=== PATIENT | female | born 1940 | race Caucasian/White ===

== ENCOUNTER 2017-06-22 02:56 | Emergency (ER) | payer OTHER ==
[~2017-06-22] VITALS: Ht 160 cm; Wt 58.5 kg
--- NOTE | ~2017-06-22 | EKG ---
[place] [address] [facility] [place] [address] ELECTROCARDIOGRAM REPORT Name: SUSU ZHANG [id number] Admission: 06/22/17 Attend Phys: Discharge: 06/22/17 Date of : 36 Report #: [id number] THIS REPORT FOR: //name// [facility] ED Test Date: 2017-06-22 Test Time: 03:01:51 Pat Name: SUSU ZHANG Department: Room: Gender: F Bone Puller: KAYLA : 1940 Requested By: Ketan Patterson Order Number: [id number] MD: Carlos Her Measurements Intervals [place] Rate: 86 P: 75 CO: 111 QRS: 69 QRSD: 91 T: 47 QT: 351 QTc: 420 Interpretive Statements Sinus rhythm Borderline short CO interval Compared to ECG 04/04/2013 18:25:33 No significant changes Electronically Signed On 06-22-2017 8:12:25 COUNTY TREASURER by Carlos Her [email or web address] <ELECTRONICALLY SIGNED> By: Carlos Her MD, [facility] 06/22/17 0812 030 030 Carlos Her MD, FACC /EPI
[~2017-06-22 02:56] MED LIST: ADULT LOW DOSE81 MG PO; ALTACE; BYSTOLIC 5 MG5 M1 PO; CALICUM 500+D1 EACH PO; CARAFATE 1 GM TA1 G1 OR; CARDIOTEK TABL1 EACH PO; CARDIZEM CD120 MG PO; CELEXA; CHONDROITIN SU250 MG PO; CITRACAL-VIT D1 EACH PO; CLONAZEPAM; CLONAZEPAM 1 MG1 M1 PO; CLONAZEPAM PO; CO Q-1010 MG PO; CRESTOR10 MG PO; CRESTOR5 MG PO; DYAZIDE; EFFIENT10 MG PO; FELDENE20 MG PO; FEMARA2.5 MG PO; FENTANYL PA25 MCG/HR TP; FISH OIL 1,0001 EAC5 PO; FISHOIL; GLUCOSAMINE HC500 MG PO; HYDROCODONE; HYDROCODONE-AP1 EACH PO; IRON325 OR; KEFLEX500 MG PO; LEVOXYL100 MCG PO; LIORESAL 10 MG10 MG PO; NABUMETONE 500500 M1 PO; NITROGLYCERIN0.4 MG SL; OMEPRAZOLE20 M2 PO; PAXIL20 MG PO; PROTONIX40 M2 PO; PROZAC40 MG PO; RAMIPRIL PO; SUPER B COMPLE1 EAC2 PO; THYROID; ZOCOR40 MG PO; [UNRECOGNIZED DRUG - OTHER] PO
[2017-06-22 03:30] LABS: HEMATOCRIT 42.3 % (37.0-47.0); HEMOGLOBIN 14.5 gm/dL (12.0-15.0); MCH 32.1 pg (26.0-34.0); MCHC 34.4 g/dL (28.0-37.0); MCV 93.5 fL (80.0-100.0); RBC 4.52 mil/uL (4.20-5.00); RDW 12.3 % (10.5-14.5); WBC 6.3 thou/uL (4.0-11.0)
[2017-06-22 03:41] LABS: ANION GAP 11 mmol/L (7-16); BUN 21 mg/dL (7-18); CALCIUM 9.7 mg/dL (8.5-10.1); CHLORIDE 105 mmol/L (98-107); CO2 27 mmol/L (21-32); CREATININE 0.8 mg/dL (0.6-1.0); GLUCOSE 110 mg/dL (74-106); POTASSIUM 3.8 mmol/L (3.5-5.1); SODIUM 143 mmol/L (136-145)
[2017-06-22 03:50] LABS: ALBUMIN 4.3 g/dL (3.4-5.0); SGOT 26 U/L (15-37); SGPT 26 U/L (30-65); TOTAL BILIRUBIN 0.4 mg/dL (<0.1-1.0); TROPONIN-I < 0.04 ng/mL (<0.06)
[2017-06-22 04:11] VITALS: BP 131/77
== END 2017-06-22 04:13 | disposition home or self-care (01) ==
LOC: ER 02:56
PROVIDERS: Emergency Medicine
DX: R00.2 Palpitations (principal); Z90.13 Acquired absence of bilateral breasts and nipples

== ENCOUNTER 2017-11-04 08:01 | Outpatient (CLI) | payer OTHER ==
[~2017-11-04] VITALS: Ht 160 cm; Wt 63.7 kg
--- NOTE | ~2017-11-04 | EKG ---
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
--- NOTE | ~2017-11-04 | EKG ---
[address] [address] ELECTROCARDIOGRAM REPORT Name: SUSU ZHANG Room #: 214-P [facility]#: [id number] Admission: 11/04/17 Attend Phys: All De La O MD Discharge: Date of : 38 Report #: [id number] THIS REPORT FOR: //name// [facility] Test Date: 2017-11-04 Test Time: 10:59:28 Pat Name: SUSU ZHANG Department: Room: Gender: F Punch Finisher: Eileen BARRERA : 1940 Requested By: All De La O Order Number: [id number] MD: Cj Delgado Measurements Intervals [place] Rate: 70 P: 55 FL: 133 QRS: 68 QRSD: 94 T: 53 QT: 398 QTc: 430 Interpretive Statements Sinus rhythm Compared to ECG 06/22/2017 03:01:51 No significant changes Electronically Signed On 11-04-2017 13:08:51 CDT by Cj Delgado [email or web address] <ELECTRONICALLY SIGNED> By: Cj Delgado MD 11/04/17 1308 1059 1059 Cj Delgado MD /CHAGO
--- NOTE | ~2017-11-04 | D ---
[facility] [place] [address] DISCHARGE SUMMARY Name: SUSU ZHANG Room #: DEP Rahel Isaacs#: [id number] Admission: 11/04/17 Attend Phys: All De La O MD Discharge: 11/05/17 Date of : 38 Report #: [id number] THIS REPORT FOR: //name// CC: Mann De La O DATE OF SERVICE: 11/05/2017 FINAL DIAGNOSES: 1. Unstable angina, status post coronary angioplasty. 2. Remote history of coronary artery disease with prior stent placement. 3. Hypertension. 4. Hypercholesterolemia. 5. Arthritis. HOSPITAL COURSE: Please see the original H and P for full details. The patient presented with her anginal equivalent, dyspnea on exertion. She underwent a nuclear stress test, revealing anterior ischemia. Please see the cardiac catheterization report for full details. The previously placed stents in the mid LAD was patent with moderate restenosis. This was also evident in the RCA stent as well. She had a new severe stenosis in the proximal LAD, undergoing placement of a drug-eluting stent. She has remained stable overnight. There is no history of chest pains or shortness of breath overnight. I discussed with her the importance of compliance with the combination of aspirin and Plavix. She will continue with other medications. The only replacement is Lipitor instead of Zocor. Otherwise, she will follow up in a few weeks' time. <ELECTRONICALLY SIGNED> By: All De La O MD 11/08/17 0806 0840 0856 All De La O MD /jeff
--- NOTE | ~2017-11-04 | CATHLAB ---
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, Farrah Chong Sandifer, David Monitor, Elgin Montgomery facilities director Performed Art Access - R femoral artery* Left Heart Cath w/or w/o Coronaries [id number] [facility] [address] Initial Mod Sed Same Phys/QHP Gr5y [id number] 21761 Mod Sed Same Phys/QHP Ea [id number] [facility] [address] w/wo Plasty Single LAD 736003 Hemostasis w/ Mynx Indication Dyspnea, Positive stress test Risk Factors Hypercholesterolemia, Coronary Artery DiseaseHypertension Previous Procedures/Diagnoses Previous PCI Procedure Narrative The patient was brought electively to the Cardiac Catheterization Laboratory and was prepped and draped in a sterile manner. The Right Groin^ was infiltrated with 1% Lidocaine subcutaneous anesthesia. A PINNACLE 4FR Sheath #[id number] sheath was inserted into the RFA^. Coronary angiography was performed using coronary diagnostic catheters. The right coronary system was accessed and visualized with a JR 4 catheter. The left coronary system was accessed and visualized with a JL 4 catheter. The left ventricle was accessed and visualized with a Pigtail catheter. Left ventricular/Aortic Valve gradient assessed via catheter pullback. Left ventriculogram was performed in PEOPLES projection. Pre-demployment femoral angiogram was performed . Closure device was deployed with a 6 Fr Mynx. The patient tolerated the procedure well and there were no complications associated with the procedure. There was no hematoma. [facility] [address] [place] [address] INVASIVE PROCEDURE REPORT Name: SUSU ZHANG Room #: 214-P [facility]#: [id number] Admission: 11/04/17 Attend Phys: All De La O MD Discharge: Date of : 38 Date of Service: 11/04/17 1435 Report #: [id number] Intraoperative Conscious Sedation Sedation start time: 09:40 Case end Time: 10:26 Fentanyl 100 mcg Versed 2 mg Fluoro Time: 6.11 minutes Dose: DAP 9736.00 cGycm2 1261 mGy Contrast Type and Amount: Omnipaque 230 ml Coronary Angiography The patient's coronary anatomy is right dominant. Diagnostic Cath Left Main Patent vessel, with no flow-limiting lesions. LAD There is a severe, discrete stenosis in the proximal segment, 90%. There is a previously placed stent in the mid segment of the LAD, patent with mild to moderate restenosis, 40%. Circumflex Mild to moderate disease in the proximal segment, 40%. OM1 Small-caliber vessel, with no flow-limiting lesions. OM2 Moderate size caliber vessel, patent with no flow-limiting lesions. Right Coronary Dominant vessel with a stent in the ostial/proximal segment with moderate restenosis, 50-60%. There is a moderate to severe stenosis in the mid segment, 60%. Recommend medical therapy. R PDA Patent vessel, with no flow-limiting lesions. RPLV Patent vessel, with no flow-limiting lesions. Left Ventriculography The left ventricle is normal in size with normal contractility. The left ventricular ejection fraction is estimated to be 55-60%. Hemodynamics The aortic pressure is 123/61 mmHg with a mean of 88 mmHg. The left ventricular pressure is 138/13 mmHg with a mean of mmHg. The left ventricular end diastolic pressure is 27 mmHg. PCI Technique Lesion Anticoagulation was achieved with Angiomax. Patient was preloaded with Plavix. Percutaneous coronary intervention was performed on the proximal left anterior descending artery segment. The lesion stenosis prior to intervention was 90% with MAHNAZ 3 flow. A VISTA 6FR JL4 #[id number] Guide Catheter was used to engage the ostium. A Luge Wire [facility] [address] [place] [address] INVASIVE PROCEDURE REPORT Name: MINE ZHANGLUANA Rojas Room #: 214-P [facility] Shital#: [id number] Admission: 11/04/17 Attend Phys: All De La O MD Discharge: Date of : 38 Date of Service: 11/04/17 1435 Report #: [id number] .014 x 182CM #[id number] Interventional Guidewire was used to cross the lesion. BALLOON DILATION A Balloon catheter Euphora RX 2.5 x 12 #[id number] was inserted and inflated up to 8.00atm for 13seconds. Additional Inflation: 8.00atm for 7seconds. STENT DEPLOYMENT A drug-eluting stent RESOLUTE RX 2.75 X 14 #[id number] was inserted and inflated up to 18.00atm for 21seconds. POST STENT DEPLOYMENT BALLOON DILATION A Balloon catheter TREK NC RX 2.75 X 12 #[id number] was inserted and inflated up to 16.00atm for 12seconds. Final angiography reveals 0 % stenosis with MAHNAZ 3 flow. Conclusion 1. Successful insertion of a drug-eluting stent into the severe, de rocio stenosis in the proximal LAD. 2. Patent stent in the mid LAD with mild to moderate restenosis, 40%. 3. Patent stent in the ostial/proximal RCA with moderately severe stenosis. Recommend medical therapy. 4. Normal LV systolic function. 5. Recommend dual antiplatelet therapy. <ELECTRONICALLY SIGNED> By: All De La O MD 11/04/17 1435 1435 143 All De La O MD /INF
[2017-11-04 08:51] VITALS: BP 105/35
[2017-11-04 08:54] LABS: HEMATOCRIT 39.4 % (37.0-47.0); HEMOGLOBIN 13.9 gm/dL (12.0-15.0); MCH 32.6 pg (26.0-34.0); MCHC 35.3 g/dL (28.0-37.0); MCV 92.5 fL (80.0-100.0); RBC 4.25 mil/uL (4.20-5.00); RDW 12.2 % (10.5-14.5); WBC 4.8 thou/uL (4.0-11.0)
[2017-11-04 09:06] LABS: CALCIUM 8.6 mg/dL (8.5-10.1); CREATININE 0.8 mg/dL (0.6-1.0); POTASSIUM 4.2 mmol/L (3.5-5.1)
[2017-11-04] MEDS ORDERED: MELOXICAM15 MG PO (09:09)
[2017-11-04] MEDS ORDERED: PAXIL10 MG PO (09:09)
[2017-11-04] MEDS ORDERED: CLONAZEPAM 0.50.5 M1 PO (09:09)
[2017-11-04 12:45] VITALS: BP 136/72
[2017-11-04 16:10] VITALS: BP 123/50
[2017-11-04 19:19] VITALS: BP 116/66
[2017-11-04] MEDS ORDERED: SIMVASTATIN40 MG PO (19:41)
[2017-11-04] MEDS ORDERED: GABAPENTIN 100100 MG PO (19:42)
[2017-11-04 23:46] VITALS: BP 107/45
[2017-11-05 03:58] VITALS: BP 138/56
[2017-11-05 04:34] LABS: ALBUMIN 3.3 g/dL (3.4-5.0); ANION GAP 3 mmol/L (7-16); BUN 19 mg/dL (7-18); CALCIUM 8.9 mg/dL (8.5-10.1); CHLORIDE 109 mmol/L (98-107); CO2 30 mmol/L (21-32); CREATININE 0.8 mg/dL (0.6-1.0); GLUCOSE 102 mg/dL (74-106); POTASSIUM 4.1 mmol/L (3.5-5.1); SGOT 23 U/L (15-37); SGPT 26 U/L (30-65); SODIUM 142 mmol/L (136-145); TOTAL BILIRUBIN 0.2 mg/dL (<0.1-1.0); TROPONIN-I <0.06 ng/mL (<0.06)
[2017-11-05 05:43] LABS: HEMATOCRIT 40.3 % (37.0-47.0); HEMOGLOBIN 13.6 gm/dL (12.0-15.0); MCH 32.6 pg (26.0-34.0); MCHC 33.8 g/dL (28.0-37.0); MCV 96.7 fL (80.0-100.0); RBC 4.17 mil/uL (4.20-5.00); RDW 12.5 % (10.5-14.5); WBC 5.2 thou/uL (4.0-11.0)
[2017-11-05 07:40] VITALS: BP 147/81
[2017-11-05] MEDS ORDERED: CLOPIDOGREL75 MG PO (08:32)
[2017-11-05] MEDS ORDERED: ATORVASTATIN CA80 MG PO (08:32)
[2017-11-05 08:47] VITALS: BP 147/81
== END 2017-11-05 10:18 | disposition home or self-care (01) ==
LOC: CATH 08:01 → 2N 08:01 → CATH 12:31 → 2N 13:07 → CATH 15:19 → ENTRNSPT 11-05 09:38 → EDTRNSPTSTS 11-05 09:40 → CATH 11-05 10:18
PROVIDERS: Internal Medicine Cardiovascular Disease
DX: I25.10 Atherosclerotic heart disease of native coronary artery without angina pectoris (principal); I10 Essential (primary) hypertension; E78.00 Pure hypercholesterolemia, unspecified
CPT/HCPCS: 10081

== ENCOUNTER 2019-03-01 13:04 | Day surgery (SDC) | payer OTHER ==
[2019-02-15 12:44] LABS: HEMOGLOBIN 14.6 gm/dL (12.0-15.0); MCH 33.1 pg (26.0-34.0); MCHC 33.1 g/dL (28.0-37.0); MCV 99.8 fL (80.0-100.0); RBC 4.4 mil/uL (4.20-5.00); RDW 12.7 % (10.5-14.5); WBC 6.4 thou/uL (4.0-11.0)
[2019-02-15 12:51] LABS: URINE BILIRUBIN NEGATIVE (Negative); URINE BLOOD NEGATIVE (Negative); URINE CLARITY CLEAR; URINE COLOR YELLOW; URINE GLUCOSE-RANDOM* NEGATIVE (Negative); URINE KETONES NEGATIVE (Negative); URINE LEUKOCYTES-REFLEX NEGATIVE (Negative); URINE NITRITE-REFLEX NEGATIVE (Negative); URINE PROTEIN (DIPSTICK) NEGATIVE (Negative); URINE SPECIFIC GRAVITY 1.025 (1.005-1.035); URINE UROBILINOGEN 0.2 E.U./dl (0.2-1.0)
[2019-02-15 12:52] LABS: ALBUMIN 4.2 g/dL (3.4-5.0); CALCIUM 9.4 mg/dL (8.5-10.1); CREATININE 0.6 mg/dL (0.6-1.0); POTASSIUM 4.8 mmol/L (3.5-5.1)
[2019-02-15 13:05] LABS: PROTIME 10.1 Seconds (9.3-11.4)
[~2019-03-01] VITALS: Ht 160 cm; Wt 54.0 kg
[~2019-03-01 13:04] MED LIST changes: +ATORVASTATIN CA80 MG PO; +CLONAZEPAM 0.50.5 M1 PO; +CLOPIDOGREL75 MG PO; +GABAPENTIN 100100 MG PO; +LIPITOR40 MG PO; +LIPO-FLAVONOID1 EACH PO; +MELOXICAM15 MG PO; +PAXIL10 MG PO; +PLAVIX 75 MG TA75 MG PO; +RAMIPRIL2.5 MG PO; +SIMVASTATIN40 MG PO; +TRAZODONE HCL50 MG PO; +WOMEN'S 50 PLU1 EAC1 PO
[2019-03-01 15:15] VITALS: BP 116/59
--- NOTE | 2019-03-01 15:26 | NUR ---
This patching machine operator was paged at 1444 hours to come visit the patient. Patient's daughter was in room with the patient. Patient was resting with her eyes closed. Upon verbal promoting she became very alert. She was also very anxious. We did life review and discussed her family, kizzy and her life experiences. This patching machine operator was able to calm her and assured her it would be a very good surgery and recovery. We concluded in prayer. She was pleased that our Radio Repairman on Fridays and Saturdays is Father Etienne. She apparently knows him from [facility]. This patching machine operator explained that he will probably be seeing her in the morning as he sees newly admitted [facility] patients. I explained I will probalbly be seeing her tomorrow, also.
[2019-03-01 21:20] VITALS: BP 143/76
--- NOTE | 2019-03-02 03:34 | NUR ---
Pt arrived on unit at 2100 from PACU via bed accompanied by staff. A/OX4,VSS. Admission completed without problem. Continent of B&B. Pt has a bruising on her right jaw reports she had tooth extracted on 02/22. Denied pain on assessment only numbness to left foot,has good CMS on foot encouraged to keep wiggling her foot as tolerable. Pt is up with assist of / to [facility] to LLE. Fall precautions implemented. Resting quietly at this time no distress noted, will continue to monitor pt.
[2019-03-02 05:00] VITALS: BP 121/66
[2019-03-02 06:07] LABS: HEMATOCRIT 36.4 % (37.0-47.0); HEMOGLOBIN 12.2 gm/dL (12.0-15.0); MCH 33.3 pg (26.0-34.0); MCHC 33.5 g/dL (28.0-37.0); MCV 99.3 fL (80.0-100.0); RBC 3.66 mil/uL (4.20-5.00); RDW 12.5 % (10.5-14.5); WBC 8.1 thou/uL (4.0-11.0)
--- NOTE | 2019-03-02 09:09 | NUR ---
Nutrition: Assessed d/t consult received for malnutrition. Pt admitted for L total knee replacement, s/p surgery 03/01 for L knee osteoarthritis. 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 States her usual weight is 119# - which is what she currently weighs. Estimates weighing 130# 2-3 yrs ago, but in recent years with advancing age has a slightly smaller appetite to be expected. Denies any nutrition problems or concerns. Observed body for any signs of muscle wasting. Clavicles with normal protrusion in female, interosseous muscle intact (still bulges), and temples normal. Defer malnutrition diagnosis at this time. No new labs this admit. Pt aware of good nutrition and protein emphasis. Low nutrition risk.
--- NOTE | 2019-03-02 13:09 | NUR ---
ASSESSMENT-PT LIVES IN AN APT ALONE. SHE HAS HER PORTRAIT STUDIO IN ONE ROOM AND LIVES OUT OF THE OTHER ROOM IN HER APT. PRIOR PT WALKED ON HER OWN AND DID HER OWN ADLS. PT DRIVES. SHE HAS A SON THE LIVES ABOUT 5 MIN AWAY AND A DTR THAT LIVES 15 MIN AWAY. PT DID HER OWN COOKING, CLEANING AND LAUNDRY. PT SAYS THE DR WAS SUPPOSED TO TALK TO HER ABOUT HER THERAPY AFTER THE SURGERY BUT THIS HAS NOT BEEN DONE YET. PT NEEDS A ROLLER WALKER FOR HOME. OFFERED OPTIONS WITHIN HER INS NETWORK AND AM WAITING FOR A RESPONSE FROM [employer] ON A DELIVERY TIME. FOLLOWING. NO OTHER DC NEEDS IDENTIFIED.
[2019-03-02] MEDS ORDERED: NEURONTIN 300300 M1 PO (14:34)
[2019-03-02 15:05] VITALS: BP 121/66
[2019-03-02 15:11] VITALS: BP 121/66
--- NOTE | 2019-03-02 15:30 | NUR ---
PT ASSESSED AT START OF SHIFT. DOING WELL POST OP. WALKING STEADY W/ WALKER. PAIN WELL CONTROLLED. DISCHARGED TO HOME AT THIS TIME AFTER INSUCTIONS PER PA AND NURSING.
--- NOTE | 2019-03-02 15:51 | NUR ---
pepe valle has been delivered by [facility]. offered hh options to pt and she WOULD LIKE TO USE [facility] SHE HAS HAD THEM IN THE PAST. ALERTED DC GAS DESULFURIZER TO FAX DC ORDERS TO [facility].
--- NOTE | 2019-03-03 10:05 | NUR ---
PT DISCHARGED ON 03/02 TO HOME WITH [facility] FAXED REFERRAL AND SPOKE WITH JEAN-PAUL IN INTAKE AND THE CAN ACCEPT. FAXED DC ORDERS/SUMMARY AND RECEIVED CONFIRMATON AND SPOKE WITH INTAKE AND THEY WILL NOTIFY PT TIME OF VISITS.
--- NOTE | 2019-03-07 12:13 | O ---
[facility] [place] [address] OPERATIVE REPORT Name: SUSU ZHANG Room #: DEP [facility]..#: [id number] Admission: 03/01/19 Attend Phys: Doc De La Torre MD Discharge: 03/02/19 Date of : 38 Report #: [id number] THIS REPORT FOR: //name// CC: Mann De La Torre DATE OF SERVICE: 03/01/2019 PREOPERATIVE DIAGNOSIS: Left knee osteoarthritis. POSTOPERATIVE DIAGNOSIS: Left knee osteoarthritis. PROCEDURE: Left total knee arthroplasty using Navio robotic assistance. SURGEON: Doc De La Torre MD. TAX ACCOUNTANT: Jaquelin John PA-C. INDICATIONS FOR TAX ACCOUNTANT: Throughout the case, extensive retraction and manipulation of the knee was required. This was afforded to me by my assistant superintendent. ANESTHESIA: LMA with an adductor canal block. IMPLANTS: Silva and Nephew size 4 Legion cobalt chrome posterior stabilized femur, a size 3 tibia, size 32 patella and a size 11 polyethylene. TOURNIQUET TIME: 53 minutes. ESTIMATED BLOOD LOSS: 25 mL. COMPLICATIONS: None. SPECIMENS: None. CONDITION UPON LEAVING THE OPERATING ROOM: Stable. INDICATIONS FOR PROCEDURE: The patient is an 78-year-old female with severe left knee osteoarthritis who failed conservative measures for this and after discussion with her, she elected for left total knee arthroplasty. DESCRIPTION OF PROCEDURE: Risks, benefits, alternatives, complications were discussed in detail with the patient including but not limited to risk of anesthesia, risk of damage to nerves, arteries, blood vessels, risk for infection, bleeding, risk for continued knee pain, need for reoperation. Informed consent was obtained from the patient. Left knee was appropriately marked in the preoperative holding area. Adductor canal block was placed by [facility] [address] [place] [address] OPERATIVE REPORT Name: SUSU ZHANG Room #: DEP [facility] M.R.#: [id number] Admission: 03/01/19 Attend Phys: Doc De La Torre MD Discharge: 03/02/19 Date of : 38 Report #: [id number] anesthesia. IV Ancef was given for preoperative antibiotics. She was brought to the operating room and placed in supine position on operating room table. LMA anesthesia was induced without complication. Tourniquet was placed on the left thigh. Left lower extremity was prepped and draped in normal sterile fashion. Timeout was performed properly identifying the patient and procedure as well as the instrumentation. All in the operating room were in agreement. Left lower extremity was exsanguinated, tourniquet was inflated. Tourniquet time was 53 minutes. Standard midline approach to the knee was made with 10 blade through the skin. Dissection was taken down sharply to the fascia, deep flaps were developed medially and laterally. Fresh 10 blade was used to make a medial parapatellar arthrotomy and there was severe osteoarthritic change noted. ACL and PCL were removed sharply. Reference pins were placed in the femur and the tibia and the knee was digitally mapped using the [employer] robotic system. We sized the size 4 femur with a size 3 tibia and an 11 polyethylene. After acceptance of the intraoperative plan, the distal femoral cut was made with a Navio bur. The size 4, 4-in-1 cutting block was then pinned in place and anterior, posterior and chamfer cuts were made. Attention was then turned to the tibia. The remainder of the menisci removed with Bovie cautery. Tibial resection guide was pinned in place using the Navio for placement. Tibial resection was made. Flexion and extension gaps were then checked and found to have good balance in flexion and extension both medially and laterally. The tibia was sized, found to be a size 3. A size 3 tibial trial was placed, pinned and punched. A size 4 femoral trial was placed and the box cut was made. This was then trialed with a size 10 and then a size 11 polyethylene and size 11 polyethylene demonstrated immediately a millimeter laxity medially and laterally throughout range of motion of the knee. A 9 mm was then resected from the posterior surface of the patella and a size 32 patellar trial button was placed. Knee was taken through range of motion, found to be stable, found to have good patellar tracking. After this, trial components were removed. Bone ends were thoroughly irrigated with normal saline. A final size 3 tibia, size 4 Legion cobalt chrome posterior stabilized femur and a size 32 patella were cemented in place using standard cementation techniques. While the cement cured, a periarticular injection consisting of morphine, ropivacaine, epinephrine and Toradol were placed around the knee joint capsule. After the cement cured, the tourniquet was deflated. Hemostasis was obtained with Bovie cautery. A final size 11 polyethylene was placed. A gram of vancomycin was placed deep in the joint. The fascia was closed with 0 Vicryl, skin was closed with 2-0 Vicryl, 3-0 Monocryl. Dermabond and a YONIS dressing was applied. The patient tolerated this procedure well and went to recovery room under care of anesthesia postoperatively. <ELECTRONICALLY SIGNED> By: Doc De La Torre MD 03/07/19 1213 1748 1855 Doc De La Torre MD /nt
== END 2019-03-02 16:33 | disposition home or self-care (01) ==
LOC: OR 13:04 → TBA 13:08 → PRE 16:02 → OR 16:16 → 4S 21:08 → ENTRNSPT 03-02 16:09 → OR 03-02 16:33
PROVIDERS: Orthopaedic Surgery
DX: M17.12 Unilateral primary osteoarthritis, left knee (principal); I10 Essential (primary) hypertension; F32.9 Major depressive disorder, single episode, unspecified; E78.00 Pure hypercholesterolemia, unspecified; Z85.3 Personal history of malignant neoplasm of breast; Z98.890 Other specified postprocedural states; Z79.899 Other long term (current) drug therapy; Z79.82 Long term (current) use of aspirin
CPT/HCPCS: 10102; 50010; 50101; 50415; 50954; 51130; 51225; 51320; 52001; 52282; 53000; 53078; 53364; 54118; 56527; 56528; 57095; 57103; 57110; 57127; 57180; 62110; 62900; 64039; 70005

== ENCOUNTER → 2019-05-17 | Outpatient (CLI) | payer OTHER ==
[~2019-05-17] MED LIST changes: +NEURONTIN 300300 M1 PO
== END | disposition home or self-care (01) ==
LOC: SJCVC 15:09
DX: I25.10 Atherosclerotic heart disease of native coronary artery without angina pectoris (principal); I10 Essential (primary) hypertension; E78.00 Pure hypercholesterolemia, unspecified; Z79.82 Long term (current) use of aspirin; Z79.899 Other long term (current) drug therapy; Z85.3 Personal history of malignant neoplasm of breast; Z90.49 Acquired absence of other specified parts of digestive tract

== ENCOUNTER → 2019-09-14 | Outpatient (CLI) | payer OTHER | LOC: ULTRA 09-12 10:06 | DX: R63.4 Abnormal weight loss (principal) ==

== ENCOUNTER → 2020-10-07 | Outpatient (CLI) | payer OTHER | LOC: SJCVC 14:57 | PROVIDERS: ATTEND Internal Medicine Cardiovascular Disease | DX: R94.31 Abnormal electrocardiogram [ECG] [EKG] (principal); R00.1 Bradycardia, unspecified; I10 Essential (primary) hypertension; I25.10 Atherosclerotic heart disease of native coronary artery without angina pectoris; E78.00 Pure hypercholesterolemia, unspecified; F32.9 Major depressive disorder, single episode, unspecified; Z79.82 Long term (current) use of aspirin; Z79.899 Other long term (current) drug therapy; Z85.3 Personal history of malignant neoplasm of breast; Z96.652 Presence of left artificial knee joint; Z88.8 Allergy status to other drugs, medicaments and biological substances ==

== ENCOUNTER 2020-11-18 21:54 | Inpatient (IN) | payer OTHER ==
[~2020-11-18] VITALS: Ht 160 cm; Wt 53.2 kg
--- NOTE | ~2020-11-18 | EMS ---
[address] [address] EMS Patient Care Report Name: SUSU ZHANG Room #: 439-P ADM IN M.R.#: [id number] Admission: 11/19/20 Attend Phys: Clemencia Masterson Discharge: Date of : 38 Report #: [id number] THIS REPORT FOR: //name// Report Transmitted: 11/19/2020 06:41 EMS Care Summary [facility] MED-ACT Incident [id number] @ 11/18/2020 21:24 Incident Location [address] [place] [address] Patient SUSU ZHANG Female, 80 Years 1940 Patient Address [address] [place] [address] Patient History Hypertension (HTN),Hyperlipidemia,Breast Cancer,Cardiac - Stent,Back Pain (Chronic),Coronary Artery Disease (CAD), Patient Allergies No known allergies, Patient Medications Aspirin, Ramipril, Atorvastatin, Trazodone, Nitroglycerin, Chief Complaint Abdominal Pain Disposition Transported No Lights/[place] Dispatch Reason Abdominal Pain/Problems Transported To [facility] Narrative [id number] was met outside by the pt upon arrival. The pt stated that she has been [address] [address] EMS Patient Care Report Name: SUSU ZHANG Room #: 439-P ADM IN M.R.#: [id number] Admission: 11/19/20 Attend Phys: Clemencia Masterson Discharge: Date of : 36 Report #: [id number] having abdominal pain since 08:00 this morning. The pt stated that she felt like she was had a lump in her stomach. She stated that she had a bowel movement this morning that was "hard". The pt stated that she went to her doctor today for a check up and she told her doctor about her abdominal pain. She stated that her doctor didn't do anything for her abdominal pain. The pt stated that she used a suppository today and got no relief. The pt stated that she was nauseous and had an episode of vomiting while with EMS. The pt had no other complaints at this time. The pt was able to walk out to the ambulance, and was transported seated in the airway chair secured with seatbelts. The pt's condition remained unchanged en route and with hand off to [facility] [place] ED low raw sugar cutter. Initial Vitals @21:47P: 96,R: 14,BP: 162/76,SpO2: 94, @21:42P: 104,R: 14,BP: 158/80,Pain: 0/10,GCS: 15,Temp: 97.4F,SpO2: 98,Revised Trauma: 12, Assessments @21:32MENTAL:Person Oriented,Time Oriented,Place Oriented,Event Oriented,SKIN:HEENT:Head/Face: No Abnormalities,Eyes: No Abnormalities,Neck/Airway: No Abnormalities,LUNG SOUNDS:General: No Abnormalities,ABDOMEN:General: No Abnormalities,PELVIS//GI:No Abnormalities,EXTREMITIES:Left Arm: No Abnormalities,Right Arm: No Abnormalities,Left Leg: No Abnormalities,Right Leg: No Abnormalities,PULSE:Radial: 2+ Normal,NEURO:No Abnormalities, Impression Abdominal Pain Procedures @21:31ALS AssessmentResponse: UnchangedSucceeded Timeline 21:22,Call Received 21:,Psap Call 21:24,Dispatched 21:25,En Route 21:30,On Scene 21:31,At Patient 21:31,ALS Assessment,Response: UnchangedSucceeded, 21:41,Depart Scene 21:42,BP: 158/80 M,PULSE: 104,RR: 14 R,SPO2: 98 Ox,ETCO2: ,BG: ,PAIN: 0,GCS: 15, 21:47,BP: 162/76 M,PULSE: 96,RR: 14 R,SPO2: 94 Ox,ETCO2: ,BG: ,PAIN: ,GCS: , 21:50,At Destination [address] [address] EMS Patient Care Report Name: SUSU ZHANG Room #: 439-P ADM IN .R.#: [id number] Admission: 11/19/20 Attend Phys: Clemencia Masterson Discharge: Date of : 38 Report #: [id number] 21:58,Call Closed Disclaimer v1.1 Copyright 2020 [employer] This EMS Care Summary contains data elements from the applicable legal record (which may be displayed differently). It is designed to provide pertinent information for the following purposes: continuity of care, clinical quality, and state data reporting. The complete legal record is available to ED staff and administrators of the receiving hospital in [facility]'s Patient Tracker. All data is provided "as is."
[2020-11-18 21:56] VITALS: BP 131/59
[2020-11-18 23:52] LABS: EOSINOPHILS 0.1 % (0.0-3.0); HEMATOCRIT 45.3 % (37.0-47.0); RBC 4.67 mil/uL (4.20-5.00)
[2020-11-18 23:54] LABS: ABSOLUTE NEUTROPHILS 11.2 thou/uL (1.4-8.2); BASOPHILS 0.3 % (0.0-2.0); HEMOGLOBIN 15.4 gm/dL (12.0-15.0); LYMPHOCYTES 8.6 % (24.0-44.0); MCH 33.1 pg (26.0-34.0); MCHC 34.1 g/dL (28.0-37.0); MONOCYTES 5.9 % (1.0-8.0); PLATELET COUNT 242 thou/uL (150-400); POLYS 85.1 % (36.0-66.0); RDW 12.3 % (10.5-14.5); WBC 13.2 thou/uL (4.0-11.0)
[2020-11-19 00:05] LABS: CALCIUM 9.4 mg/dL (8.5-10.1); CREATININE 0.8 mg/dL (0.6-1.0); POTASSIUM 3.8 mmol/L (3.5-5.1)
[2020-11-19 00:09] LABS: ALBUMIN 4.4 g/dL (3.4-5.0); TOTAL BILIRUBIN 0.3 mg/dL (0.2-1.0); TOTAL PROTEIN 7.6 g/dL (6.4-8.2)
[2020-11-19 00:46] LABS: URINE BILIRUBIN NEGATIVE (Negative); URINE BLOOD NEGATIVE (Negative); URINE CLARITY CLEAR; URINE COLOR YELLOW; URINE GLUCOSE-RANDOM* NEGATIVE (Negative); URINE KETONES 1+ (Negative); URINE LEUKOCYTES-REFLEX NEGATIVE (Negative); URINE NITRITE-REFLEX NEGATIVE (Negative); URINE PROTEIN (DIPSTICK) NEGATIVE (Negative); URINE UROBILINOGEN 0.2 E.U./dl (0.2-1.0)
[2020-11-19 02:48] VITALS: BP 151/60
[2020-11-19 03:31] VITALS: BP 147/80
[2020-11-19 03:55] VITALS: BP 128/69
--- NOTE | 2020-11-19 04:40 | NUR ---
PT ARRIVED FROM THE ER THIS MORNING @0335 DENIES PAIN, NAUSEA AND VOMITING ON ASSESSMENT. UP AD ROULA TO THE BATHROOM STEADY GAIT. A&OX4 FROM HOME. CLEAR LUNGS SOUNDS. LIMB ALERT ON LEFT FOREARM. IV INTACT AND SALINE LOCK IN RT AC. ON RA. VSS. FALL EDUCATION PROVIDED. ADMISSION DONE AND PT ORIENTED TO THE UNIT. WILL CONT TO MONITOR.
[2020-11-19 07:24] VITALS: BP 119/65
--- NOTE | 2020-11-19 15:43 | NUR ---
assessment: CM REVIEWED CHART AND SPOKE WITH PATIENT. PT APPEARS ALERT AND ORIENTED X4. PT WAS ADMITTED FROM HOME DUE TO ABDOMINAL PAIN. PT IS TO HAVE SURGERY TOMORROW FOR LAPAROSCOPIC INGUINAL HERNIA REPAIR. PT REPORTS LIVING IN AN APT ALONE. PT REPORTS SHE HAS NO STEPS TO ENTER OR INSIDE. PT STATES SHE IS INDEPENDENT WITH ADLS AND AMBULATION AND HAS NO DME SHE HAS NEEDED. PT REPORTS HAVING A GRAB BAR IN THE SHOWER. PT REPORTS HAVING A SON AND DAUGHTER WHO LIVE CLOSE AND ARE SUPPORTIVE. PT REPORTS SHE HAS HAD [facility] IN THE PAST BUT NOT RECENTLY. CM DISCUSSED ROLE. PT DOES NOT ANTICIPATE HAVING ANY NEEDS FROM CM . CM WILL CONTINUE TO FOLLOW TO ASSIST NEEDED.
[2020-11-19 17:37] VITALS: BP 147/71
[2020-11-19 19:07] VITALS: BP 130/71
--- NOTE | 2020-11-20 03:42 | NUR ---
PT IS A/O X4 WITH FORGETFULLNESS. ROOM AIR. VSS. AFEBRILE. GETS UP AD ROULA AND CALLS OUT APPROPRIATELY. IV INFILTRATED. REMOVED WITH CATHETER INTACT AND REPLACED. NPO AWAITING HER PROCEDURE IN THE AM. CALL LIGHT IS WITHIN REACH. CALLS OUT APPROPRIATELY
[2020-11-20 04:21] VITALS: BP 140/66
[2020-11-20 04:42] LABS: CALCIUM 8.3 mg/dL (8.5-10.1); CREATININE 0.6 mg/dL (0.6-1.0); POTASSIUM 3.8 mmol/L (3.5-5.1)
[2020-11-20 05:09] LABS: ABSOLUTE NEUTROPHILS 2.2 thou/uL (1.4-8.2); BASOPHILS 0.9 % (0.0-2.0); EOSINOPHILS 1.2 % (0.0-3.0); HEMATOCRIT 39.8 % (37.0-47.0); HEMOGLOBIN 13.5 gm/dL (12.0-15.0); MCHC 33.9 g/dL (28.0-37.0); MCV 97.4 fL (80.0-100.0); MONOCYTES 8.5 % (1.0-8.0); PLATELET COUNT 189 thou/uL (150-400); POLYS 50.4 % (36.0-66.0); RBC 4.09 mil/uL (4.20-5.00); RDW 12.6 % (10.5-14.5); WBC 4.3 thou/uL (4.0-11.0)
[2020-11-20 08:00] VITALS: BP 145/69
[2020-11-20 08:10] VITALS: BP 111/67
[2020-11-20 11:58] VITALS: BP 139/64
--- NOTE | 2020-11-20 13:02 | NUR ---
PATIENT ALERT AND ORINTED X4 - FORGETFUL AT TIMES, ON ROOM AIR AND AFTER SX, TOLERATING LIQUIDS NO NAUSEA, WALKED TO RESTROOM AFTER SX - DID WELL, PAIN MEDICATION GIVEN PER MAR, VITAL SIGNS STABLE, AND AFBRIELE. CALL LIGHT WITH IN REACH, WILL CONTINUE TO MONTIOR.
[2020-11-20 16:58] VITALS: BP 116/51
[2020-11-20 20:00] VITALS: BP 152/70
--- NOTE | 2020-11-21 03:37 | NUR ---
PT IS A/O X4 WITH SOME FORGETFULLNESS. PLEASANT AND COOPERATIVE. C/O PAIN TO ABDOMEN. PRN PAIN MEDICATION PROVIDED DIRECTED. C/O NAUSEA. PRN NAUSEA MEDICATION GIVEN DIRECTED. SCHEDULED MEDICATION GIVEN WHOLE WITH WATER. PT HAS HAD A SMALL BM BUT STATED IT WAS DIFFICULT. SCHEDULED MIRALAX GIVEN WITH HS MEDICATION. PT STATES SHE IS FEELING BETTER THIS AM THAN SHE DID EARLIER IN THE NOC. VSS AFEBRILE. FALL PRECAUTIONS IN PLACE FOLLOWING PROCEDURE. PT IS SBA TO THE BR. CALLS OUT APPROPRIATELY FOR ASSISTANCE.SURGICAL SITES ARE C/D/I WITH NO DRAINAGE NOTED.
[2020-11-21 04:21] VITALS: BP 110/58
[2020-11-21 05:31] LABS: HEMATOCRIT 28.9 % (37.0-47.0); MCH 34.1 pg (26.0-34.0); MCHC 35.2 g/dL (28.0-37.0); MCV 96.9 fL (80.0-100.0); RBC 2.98 mil/uL (4.20-5.00); RDW 12.2 % (10.5-14.5)
[2020-11-21 06:03] LABS: HEMOGLOBIN 10.2 gm/dL (12.0-15.0)
[2020-11-21 07:33] VITALS: BP 133/59
[2020-11-21 11:29] VITALS: BP 133/59
--- NOTE | 2020-11-21 12:22 | NUR ---
ASSUMED CARE OF PT AT 0700 THIS MORNING. PT HAS HERNIA REAPIR SURGERY WITH 4X LAP SITES ON THE ABD. PT WAS KEPT OVERNIGHT DUE TO EXTENSIVE PAIN. PT IS A/OX4, SKIN INTACT BESIDES LAP SITES, NO TENTING AND DISTAL PULSES STRONG AND PRESENT. CALL PT IS INDEP MOBILITY AND GOES TO TOILET. ASSESSMENTS DOCUMENTED IN CHARTS AND OTHERWISE UNREMARKABLE. IV WAS ACCIDENTLY PULLED AND WAS 2X2 AND BANDAID IN PLACE. NO NEW IV NEEDED SINCE PT IS BEING DISCHARGED. DISCHARGE PAPERS WERE LEFT WITH PT AND SIGNED.
--- NOTE | 2020-11-21 14:05 | NUR ---
ON-GOING ASSESSMENT: CM REVIEWED CHART. PT HAD ORDERS TO DISCHARGE HOME TODAY AND NO NEEDS FROM CM.
== END 2020-11-21 13:37 | disposition home or self-care (01) | DRG 352 ==
LOC: ER 21:54 → 4S 11-19 02:23 → EROBS 11-19 02:23 → 4S 11-19 03:29
PROVIDERS: Emergency Medicine; Internal Medicine Cardiovascular Disease; Nurse Practitioner; ADMIT Hospitalist; ATTEND Hospitalist
PROC: 0YU64JZ Supplement Left Inguinal Region with Synthetic Substitute, Percutaneous Endoscopic Approach (ICD-10-PCS; principal; 2020-11-20)
DX: K40.30 Unilateral inguinal hernia, with obstruction, without gangrene, not specified as recurrent (principal); I10 Essential (primary) hypertension; E78.00 Pure hypercholesterolemia, unspecified; F32.9 Major depressive disorder, single episode, unspecified; E78.5 Hyperlipidemia, unspecified; I25.10 Atherosclerotic heart disease of native coronary artery without angina pectoris; D72.829 Elevated white blood cell count, unspecified; Z85.3 Personal history of malignant neoplasm of breast; Z90.13 Acquired absence of bilateral breasts and nipples; Z90.49 Acquired absence of other specified parts of digestive tract; Z95.5 Presence of coronary angioplasty implant and graft; Z98.49 Cataract extraction status, unspecified eye; Z79.82 Long term (current) use of aspirin; Z79.899 Other long term (current) drug therapy
CPT/HCPCS: 10102; 50010; 50101; 50411; 50555; 50558; 50854; 50984; 51489; 52265; 52266; 53307; 53310; 54022; 54118; 56462; 56524; 56525; 56526; 58574; 62110; 62900; 70005

== ENCOUNTER → 2021-04-14 | Outpatient (CLI) | payer OTHER | LOC: SJCVC 14:06 | PROVIDERS: ATTEND Internal Medicine Cardiovascular Disease | DX: I25.10 Atherosclerotic heart disease of native coronary artery without angina pectoris (principal); R00.1 Bradycardia, unspecified; I10 Essential (primary) hypertension; E78.00 Pure hypercholesterolemia, unspecified; Z88.8 Allergy status to other drugs, medicaments and biological substances; Z79.82 Long term (current) use of aspirin; Z79.899 Other long term (current) drug therapy; Z82.49 Family history of ischemic heart disease and other diseases of the circulatory system ==